=== PATIENT | female | born 1930 | race Caucasian/White ===

== ENCOUNTER 2018-01-04 10:14 | Outpatient (CLI) | payer MEDICARE ==
[2018-01-04] MEDS ORDERED: Sodium Chloride 0.9% 15 ML NEB ONE (14:25)
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
== END 2018-01-04 10:15 | disposition home or self-care (01) ==
LOC: WCC 10:14
PROVIDERS: ATTEND Family Medicine
DX: L98.499 Non-pressure chronic ulcer of skin of other sites with unspecified severity (principal); E03.9 Hypothyroidism, unspecified; I25.10 Atherosclerotic heart disease of native coronary artery without angina pectoris; I11.0 Hypertensive heart disease with heart failure; I50.9 Heart failure, unspecified; N20.0 Calculus of kidney; J45.909 Unspecified asthma, uncomplicated; N18.9 Chronic kidney disease, unspecified; I48.91 Unspecified atrial fibrillation; M10.9 Gout, unspecified; K21.9 Gastro-esophageal reflux disease without esophagitis; N90.1 Moderate vulvar dysplasia; Z90.89 Acquired absence of other organs; Z90.710 Acquired absence of both cervix and uterus; Z90.722 Acquired absence of ovaries, bilateral
CPT/HCPCS: 97139; 97602; G0463; 99203; A4218

== ENCOUNTER 2018-01-11 10:09 | Outpatient (CLI) | payer MEDICARE ==
[~2018-01-11 10:09] MED LIST: Sodium Chloride 0.9% 15 ML NEB ONE
--- NOTE | 2018-01-11 11:59 | PRG ---
DATE OF SERVICE: 01/11/2018 HISTORY: Ms. Kesha Kurtz is a very pleasant 87-year-old, who presents to the [facility] Center for evalu ation of 2 ulcerations of the left anterior chest over the inframammary region. The patient previous ly stated that the ulcerations had been present for approximately 2 years. She stated that recently the ulcerations became associated with drainage, and at this time, arrangements were made for evaluat ion of the wounds here in the Wound Center. The patient was referred to the Wound Center by Dr. Petr Salas. The patient stated she thought that she may have treated the wounds with Santyl in the past . She stated that more recently she has been dressing the ulcerations with Neosporin followed by gau ze and tape. After being seen in the Wound Center, dressing changes of Medihoney were initiated. Th e patient has been receiving dressing changes of Medihoney and bordered gauze every other day with th e assistance of Home Health. PHYSICAL EXAMINATION: VITAL SIGNS: Temperature 97.4, pulse 83, respirations 17, blood pressure 151/71. CHEST: Two ulcerations of the left anterior chest in the inframammary region are still present. The dimensions of the wounds are approximately 1.1 x 0.4 cm and 0.7 x 0.3 cm. The dimensions of these w ounds at the time of the patient's initial presentation to the Wound Center were 1.2 x 0.6 cm and 0.8 x 0.6 cm respectively. Eschar is still present within the margins of both ulcerations and completel y covers the wound bed of each ulceration. No serous or purulent drainage is associated with either ulceration on exam today. No cellulitis of the left anterior chest is appreciated. No maceration of the skin of the periwound of either wound is noted. Both ulcerations are in an area of scar tissue. ASSESSMENT AND PLAN: 1. Two ulcerations of left inframammary region as described above, both ulcerations have been presen t for approximately 2 years and developed in an area of scar tissue. Dressing changes of Medihoney a nd bordered gauze will be continued every other day after cleansing and irrigation with the assistanc e of Home Health. I will see Ms. Kurtz again in two weeks. 2. Pulmonary hypertension. 3. Hypothyroidism. 4. Coronary artery disease. 5. Nephrolithiasis. 6. Congestive heart failure. 7. Asthma. 8. Chronic renal insufficiency. 9. Atrial fibrillation. 10. Gout. 11. Gastroesophageal reflux disease. 12. Hypertension. 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
== END 2018-01-11 10:10 | disposition home or self-care (01) ==
LOC: WCC 10:09
PROVIDERS: ATTEND Family Medicine
DX: L98.499 Non-pressure chronic ulcer of skin of other sites with unspecified severity (principal); I27.20 Pulmonary hypertension, unspecified; E03.9 Hypothyroidism, unspecified; I25.10 Atherosclerotic heart disease of native coronary artery without angina pectoris; N20.0 Calculus of kidney; I50.9 Heart failure, unspecified; J45.909 Unspecified asthma, uncomplicated; I48.91 Unspecified atrial fibrillation; M10.9 Gout, unspecified; K21.9 Gastro-esophageal reflux disease without esophagitis; I13.0 Hypertensive heart and chronic kidney disease with heart failure and stage 1 through stage 4 chronic kidney disease, or unspecified chronic kidney disease; N18.9 Chronic kidney disease, unspecified; N90.1 Moderate vulvar dysplasia
CPT/HCPCS: 97602; A4218

== ENCOUNTER 2018-01-25 09:42 | Outpatient (CLI) | payer MEDICARE ==
--- NOTE | 2018-01-25 10:45 | PRG ---
DATE OF SERVICE: 01/25/2018 SUBJECTIVE: Ms. Kesha Kurtz is a very pleasant 87-year-old who presents to the [facility] Center for evaluation of 2 ulcerations of the left anterior chest over the inframammary region. The patient previously stated that the ulcerations had been present for approximately 2 years. She stated that recently the ulcerations became associated with drainage and at this time, arrangements were made for evaluation of the wound here in the Wound Center. The patient was referred to the Wound Center by Dr. Salas. The patient stated she thought that she may have treated the wounds with Santyl in the past. She stated that more recently she has been dressing the ulcerations with Neosporin, followed by gauze and tape. After being seen in the Wound Center, dressing changes of Medihoney were initiated. The patient has been receiving dressing changes of Medihoney and 4 x 4s secured with tape every other day with the assistance of Home Health. OBJECTIVE: VITAL SIGNS: Temperature 97.5, pulse 86, respirations 19, blood pressure 176/ 79. CHEST: Two ulcerations of the left anterior chest in the inframammary region are still present. The dimensions of these wounds are approximately 1.0 x 0.6 cm and 0.6 x 0.3 cm. The dimensions of these wounds at the time of the patient' s last visit were approximately 1.1 x 0.4 cm and 0.7 x 0.3 cm. Eschar is still present within the margins of both ulcerations and completely covers the wound bed of each ulceration. No serous or purulent drainage is associated with either ulceration on exam today. No cellulitis of the left anterior chest is appreciated. No maceration of the skin of the periwound of either wound is noted. Both ulcerations are in an area of scar tissue. ASSESSMENT AND PLAN: 1. Two ulcerations of left inframammary region as described above, both ulcerations had been present for approximately 2 years and developed an area of scar tissue. Dressing changes of Medihoney followed by gauze and tape will be continued every other day after cleansing and irrigation with the assistance of Home Health. I will see Ms. Kurtz again in two weeks. At this time, the eschar within the margins of each wound will be excised if possible. The patient declines excision of eschar within the margins of each wound today. 2. Pulmonary hypertension. 3. Hypothyroidism. 4. Coronary artery disease. 5. Nephrolithiasis. 6. Congestive heart failure. 7. Asthma. 8. Chronic renal insufficiency. 9. Atrial fibrillation. 10. Gout. 11. Gastroesophageal reflux disease. 12. Hypertension. 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
[2018-01-25] MEDS ORDERED: Sodium Chloride 0.9% 15 ML NEB ONE (19:51)
[2018-01-25] MEDS ORDERED: Lidocaine 2% Jelly 5 ML TUBE ONE (19:51)
== END 2018-01-25 09:43 | disposition home or self-care (01) ==
LOC: WCC 09:42
PROVIDERS: ATTEND Family Medicine
DX: L98.499 Non-pressure chronic ulcer of skin of other sites with unspecified severity (principal); I13.0 Hypertensive heart and chronic kidney disease with heart failure and stage 1 through stage 4 chronic kidney disease, or unspecified chronic kidney disease; I50.9 Heart failure, unspecified; N18.9 Chronic kidney disease, unspecified; I27.20 Pulmonary hypertension, unspecified; E03.9 Hypothyroidism, unspecified; I25.10 Atherosclerotic heart disease of native coronary artery without angina pectoris; N20.0 Calculus of kidney; I48.91 Unspecified atrial fibrillation; M10.9 Gout, unspecified; K21.9 Gastro-esophageal reflux disease without esophagitis; N90.3 Dysplasia of vulva, unspecified; J45.909 Unspecified asthma, uncomplicated
CPT/HCPCS: A4218

== ENCOUNTER 2018-02-08 09:37 | Outpatient (CLI) | payer MEDICARE ==
--- NOTE | 2018-02-08 11:54 | PRG ---
DATE OF SERVICE: 02/08/2018 HISTORY: Ms. Kesha Kurtz is a very pleasant 87-year-old who presents to the [facility] Center for evalua tion of 2 ulcerations of the left anterior chest over the inframammary region. The patient previousl y stated that the ulcerations had been present for approximately 2 years. She stated that recently t he ulcerations became associated with drainage and at this time, arrangements were made for evaluatio n of the wounds here in the Wound Center. The patient was referred to the Wound Center by Dr. Salas. The patient stated that she thought that she may have treated the wounds with Santyl in the past. S he stated that more recently she had been dressing the ulcerations with Neosporin followed by gauze a nd tape. After being seen in the Wound Center, dressing changes of Medihoney were initiated. The pa yahaira has been receiving dressing changes of Medihoney and 4 x 4 secured with tape every other day wi th the assistance of Home Health. PHYSICAL EXAMINATION: VITAL SIGNS: Temperature 97.7, pulse 85, respirations 18, blood pressure 151/71. CHEST: Two ulcerations of the left anterior chest in the inframammary region are still present. The dimensions of these wounds are approximately 1.0 x 0.5 cm and 1.0 x 0.3 cm. What appears to be hete rotopic calcifications are still present within the margins of both ulcerations and completely covers the wound bed of each ulceration. No serous or purulent drainage is associated with either ulcerati on on exam today. No cellulitis of the left anterior chest is appreciated. No maceration of the ski n of the periwound of either wound is noted. Both ulcerations are in an area of scar tissue. The he terotopic calcifications were excised from within the margins of each ulceration and sent to patholog y for histologic examination specifically to rule out fungus or malignancy and to look for findings c onsistent with heterotopic calcifications. ASSESSMENT AND PLAN: 1. Ulcerations of left inframammary region as described above, both ulcerations had been present for approximately 2 years and developed in an area of scar tissue. Dressing changes of Medihoney follow ed by gauze and tape will be continued every other day after cleansing and irrigation with the assist ance of Home Health. I will see Ms. Kurtz again in 2 weeks. At this time, the results of the hist ologic examination will be given to the patient and any remaining heterotopic calcifications will be excised with the use of injectable lidocaine. The patient understands and is in agreement with the [facility] treatment plan. 2. Pulmonary hypertension. 3. Hypothyroidism. 4. Coronary artery disease. 5. Nephrolithiasis. 6. Congestive heart failure. 7. Asthma. 8. Chronic renal insufficiency. 9. Atrial fibrillation. 10. Gout. 11. Gastroesophageal reflux disease. 12. Hypertension. 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
[2018-02-08] MEDS ORDERED: Sodium Chloride 0.9% 15 ML NEB ONE (19:26)
[2018-02-08] MEDS ORDERED: Lidocaine 2% Jelly 5 ML TUBE ONE (19:26)
== END 2018-02-08 09:38 | disposition home or self-care (01) ==
LOC: WCC 09:37
PROVIDERS: ATTEND Family Medicine
DX: L98.499 Non-pressure chronic ulcer of skin of other sites with unspecified severity (principal); I13.0 Hypertensive heart and chronic kidney disease with heart failure and stage 1 through stage 4 chronic kidney disease, or unspecified chronic kidney disease; I50.9 Heart failure, unspecified; N18.9 Chronic kidney disease, unspecified; L90.5 Scar conditions and fibrosis of skin; I27.20 Pulmonary hypertension, unspecified; E03.9 Hypothyroidism, unspecified; I25.10 Atherosclerotic heart disease of native coronary artery without angina pectoris; N20.0 Calculus of kidney; J45.909 Unspecified asthma, uncomplicated; I48.91 Unspecified atrial fibrillation; M10.9 Gout, unspecified; K21.9 Gastro-esophageal reflux disease without esophagitis; N90.1 Moderate vulvar dysplasia
CPT/HCPCS: 88304; 88312; 97602; A4218

== ENCOUNTER 2018-02-22 10:05 | Outpatient (CLI) | payer MEDICARE ==
--- NOTE | 2018-02-22 12:13 | PRG ---
DATE OF SERVICE: 02/22/2018 SUBJECTIVE: Ms. Kesha Kurtz is a very pleasant 87-year-old who presents to the Wound Center for e valuation of 2 ulcerations of the left anterior chest over the inframammary region. The patient prev iously stated that the ulcerations had been present for approximately 2 years. She stated that recen tly the ulcerations became associated with drainage and at this time, arrangements were made for eval uation of the wounds here in the Wound Center. The patient was referred to the Wound Center by Dr. Renée weiss. The patient stated that she thought that she may have treated the wounds with Santyl in the pas t. She stated that more recently she had been dressing the ulcerations with Neosporin, followed by g auze and tape. After being seen in the Wound Center, dressing changes of Medihoney were initiated. The patient has been receiving dressing changes of Medihoney and 4 x 4s secured with tape every other day with the assistance of Home Health. OBJECTIVE: VITAL SIGNS: Temperature 97.4, pulse 80, respirations 20, blood pressure 180/75. CHEST: Two ulcerations of the left anterior chest in the inframammary region are still present. The dimensions of these wounds are approximately 0.2 x 0.5 cm and 0.4 x 1.0 cm what appears to be hetero topic calcifications are still present within the margins of both ulcerations. No serous or purulent drainage is associated with either ulceration on exam today. No cellulitis of the left anterior ty st is appreciated. No maceration of the skin of the periwound of either wound is noted. Both ulcera tions are in an area of scar tissue. ASSESSMENT AND PLAN: 1. Ulcerations of left inframammary region as described above, both ulcerations had been present for approximately 2 years and developed an area of scar tissue. Dressing changes of Medihoney, followed by gauze and tape will be continued every other day after cleansing and irrigation with the assistan ce of Home Health. I will see Ms. Kurtz again in two weeks. The patient understands and is in agr eement with the preceding treatment plan. Histologic examination of the heterotopic calcifications e xcised from within the margins of each ulceration at the time of the patient's last visit showed no f ungal organisms and fragments of calcium and degenerated soft tissue with neutrophils. 2. Pulmonary hypertension. 3. Hypothyroidism. 4. Coronary artery disease. 5. Nephrolithiasis. 6. Congestive heart failure. 7. Asthma. 8. Chronic renal insufficiency. 9. Atrial fibrillation. 10. Gout. 11. Gastroesophageal reflux disease. 12. Hypertension. 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
[2018-02-22] MEDS ORDERED: Sodium Chloride 0.9% 15 ML NEB ONE (14:56)
[2018-02-22] MEDS ORDERED: Lidocaine 2% Jelly 5 ML TUBE ONE (14:56)
== END 2018-02-22 10:06 | disposition home or self-care (01) ==
LOC: WCC 10:05
PROVIDERS: ATTEND Family Medicine
DX: L98.499 Non-pressure chronic ulcer of skin of other sites with unspecified severity (principal); I13.0 Hypertensive heart and chronic kidney disease with heart failure and stage 1 through stage 4 chronic kidney disease, or unspecified chronic kidney disease; I50.9 Heart failure, unspecified; N18.9 Chronic kidney disease, unspecified; I27.20 Pulmonary hypertension, unspecified; E03.9 Hypothyroidism, unspecified; I25.10 Atherosclerotic heart disease of native coronary artery without angina pectoris; N20.0 Calculus of kidney; J45.909 Unspecified asthma, uncomplicated; I48.91 Unspecified atrial fibrillation; M10.9 Gout, unspecified; K21.9 Gastro-esophageal reflux disease without esophagitis; N90.1 Moderate vulvar dysplasia
CPT/HCPCS: A4218

== ENCOUNTER 2018-03-15 08:57 | Outpatient (CLI) | payer MEDICARE ==
--- NOTE | 2018-03-15 09:45 | PRG ---
DATE OF SERVICE: 03/15/2018 HISTORY: Ms. Kesha Kurtz is a very pleasant 87-year-old who presents to the [facility] Center for los luation of 2 ulcerations of the left anterior chest over the inframammary region. The patient previo usly stated that the ulcerations had been present for approximately 2 years. She stated that recentl y the ulcerations became associated with drainage and at this time, arrangements were made for evalua tion of the wounds here in the [facility]ound Center. The patient was referred to the Wound Center by Dr. Ric avila. The patient stated that she thought that she may have treated the wounds with Santyl in the past. The patient stated that more recently she had been dressing the ulcerations with Neosporin followed by gauze and tape. After being seen in the Wound Center, dressing changes of Medihoney were initiat ed. The patient has been receiving dressing changes of Medihoney and 4 x 4 secured with tape every o ther day with the assistance of Home Health. PHYSICAL EXAMINATION: VITAL SIGNS: Temperature 97.7, pulse 84, respirations 19, blood pressure 172/74. CHEST: Two ulcerations of the left anterior chest in the inframammary region are still present. The dimensions of these wounds are approximately 0.3 x 1.0 cm and 0.2 x 0.3 cm. What appears to be hete rotopic calcifications are still present within the margins of both ulcerations. No serous or purule nt drainage is associated with either ulceration on exam today. No cellulitis of the left anterior c hest is appreciated. No maceration of the skin of the periwound of either wound is noted. Both ulce rations are in an area of scar tissue. ASSESSMENT AND PLAN: 1. Ulcerations of left inframammary region as described above, both ulcerations had been present for approximately 2 years and developed in an area of scar tissue. Dressing changes of Medihoney follow ed by gauze and tape will be continued every other day after cleansing and irrigation with the assist ance of Home Health. I will see Ms. Kurtz again in 2 weeks. Histologic examination of the heterot opic calcifications excised from within the margins of each ulceration at the time of the patient's v isit on 02/09/2008 showed no fungal organisms and fragments of calcium and degenerated soft tissue wi th neutrophils. 2. Pulmonary hypertension. 3. Hypothyroidism. 4. Coronary artery disease. 5. Nephrolithiasis. 6. Congestive heart failure. 7. Asthma. 8. Chronic renal insufficiency. 9. Atrial fibrillation. 10. Gout. 11. Gastroesophageal reflux disease. 12. Hypertension. 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
== END 2018-03-15 08:58 | disposition home or self-care (01) ==
LOC: WCC 08:57
PROVIDERS: ATTEND Family Medicine
DX: L98.499 Non-pressure chronic ulcer of skin of other sites with unspecified severity (principal); E03.9 Hypothyroidism, unspecified; I25.10 Atherosclerotic heart disease of native coronary artery without angina pectoris; N20.0 Calculus of kidney; I13.10 Hypertensive heart and chronic kidney disease without heart failure, with stage 1 through stage 4 chronic kidney disease, or unspecified chronic kidney disease; I50.9 Heart failure, unspecified; N18.9 Chronic kidney disease, unspecified; J45.909 Unspecified asthma, uncomplicated; I48.91 Unspecified atrial fibrillation; M10.9 Gout, unspecified; K21.9 Gastro-esophageal reflux disease without esophagitis; N90.1 Moderate vulvar dysplasia
CPT/HCPCS: 97602

== ENCOUNTER 2018-03-31 09:35 | Outpatient (CLI) | payer MEDICARE ==
--- NOTE | 2018-03-31 10:55 | PRG ---
DATE OF SERVICE: 03/31/2018 HISTORY: Ms. Kesha Kurtz is a very pleasant 87-year-old who presents to the [facility] Center for los luation of 2 ulcerations of the left anterior chest over the inframammary region. The patient previo usly stated that the ulcerations had been present for approximately 2 years. She stated that recentl y the ulcerations became associated with drainage and at this time, arrangements were made for evalua tion of the wounds here in the Wound Center. The patient was referred to the Wound Center by Dr. Ric avila. The patient stated that she thought that she may have treated the wounds with Santyl in the past. The patient stated that more recently she had been dressing the ulcerations with Neosporin followed by gauze and tape. After being seen in the Wound Center, dressing changes of Medihoney were initiat ed. The patient has been receiving dressing changes of Medihoney and gauze every other day with the assistance of Home Health. PHYSICAL EXAMINATION: VITAL SIGNS: Temperature 97.5, pulse 84, respirations 18, blood pressure 178/79. CHEST: Only 1 ulceration of the left anterior chest in the inframammary region remains. The dimensi ons of this wound are approximately 0.4 x 0.3 cm. What appears to be heterotopic calcification is st ill present within the margins of the wound. Granulation tissue is present within the wound margins. No serous or purulent drainage is associated with the ulceration. No cellulitis of the left anteri or chest is appreciated. No maceration of the skin of the periwound is noted. The ulceration is in an area of scar tissue. ASSESSMENT AND PLAN: 1. Ulcerations of left inframammary region as described above, both ulcerations had been present for approximately 2 years and developed in an area of scar tissue. Dressing changes of Medihoney follow ed by gauze for the remaining wound will be continued every other day after cleansing and irrigation with the assistance of Home Health. I will see Ms. Kurtz again in 2 weeks'. Histologic examinatio n of the heterotopic calcifications excised from within the margins of each ulceration at the time of the patient's visit on 02/08/2018 showed no fungal organisms and fragments of calcium and degenerate d soft tissue with neutrophils. 2. Pulmonary hypertension. 3. Hypothyroidism. 4. Coronary artery disease. 5. Nephrolithiasis. 6. Congestive heart failure. 7. Asthma. 8. Chronic renal insufficiency. 9. Atrial fibrillation. 10. Gout. 11. Gastroesophageal reflux disease. 12. Hypertension. 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
== END 2018-03-31 09:36 | disposition home or self-care (01) ==
LOC: WCC 09:35
PROVIDERS: ATTEND Family Medicine
DX: L98.499 Non-pressure chronic ulcer of skin of other sites with unspecified severity (principal); E03.9 Hypothyroidism, unspecified; I25.10 Atherosclerotic heart disease of native coronary artery without angina pectoris; I13.0 Hypertensive heart and chronic kidney disease with heart failure and stage 1 through stage 4 chronic kidney disease, or unspecified chronic kidney disease; I50.9 Heart failure, unspecified; N18.9 Chronic kidney disease, unspecified; N20.0 Calculus of kidney; J45.909 Unspecified asthma, uncomplicated; I48.91 Unspecified atrial fibrillation; I27.20 Pulmonary hypertension, unspecified; M10.9 Gout, unspecified; K21.9 Gastro-esophageal reflux disease without esophagitis; D05.01 Lobular carcinoma in situ of right breast
CPT/HCPCS: 97602

== ENCOUNTER 2018-04-19 09:03 | Outpatient (CLI) | payer MEDICARE ==
[2018-04-19] MEDS ORDERED: Lidocaine 2% Jelly 5 ML TUBE ONE (10:00)
--- NOTE | 2018-04-19 10:55 | PRG ---
DATE OF SERVICE: 04/19/2018 HISTORY: Ms. Kesha Kurtz is a very pleasant 87-year-old who presents to the Wound Center for evaluation of 2 ulcerations of the left anterior chest over the inframammary region. The patient previously stated that the ulcerations had been present for approximately 2 years. She stated that recently the ulcerations became associated with drainage, and at this time, arrangements were made for evaluation of the wounds here in the Wound Center. The patient was referred to the Wound Center by Dr. Salas. The patient stated that she thought that she may have treated the wounds with Santyl in the past. The patient stated that more recently she had been dressing the ulcerations with Neosporin followed by gauze and tape. After being seen in the Wound Center , dressing changes of Medihoney were initiated. The patient has been receiving dressing changes of Medihoney and gauze every other day with the assistance of Home Health. PHYSICAL EXAMINATION: VITAL SIGNS: Temperature 97.6, pulse 80, respirations 17, blood pressure 174/ 74. CHEST: The remaining ulceration noted at the time of the patients last visit has divided into two small ulcerations of the left anterior chest in the inframammary region. The dimensions of these wounds are approximately 0.1 x 0.1 cm and 0.2 x 0.9 cm. What appears to be heterotopic calcification is still present within the margins of 1 wound. Granulation tissue is present within the margins of each wound. No serous or purulent drainage is associated with either ulceration. No cellulitis of the left anterior chest is appreciated. No maceration of the skin of the periwound of either wound is noted. The ulcerations are present in an area of scar tissue. ASSESSMENT AND PLAN: 1. Ulcerations of left inframammary region. As stated above, two ulcerations have been present for approximately 2 years and developed in an area of scar tissue. Dressing changes of Medihoney and gauze for the remaining ulcerations will be continued every other day after cleansing and irrigation with the assistance of Home Health. I will see Ms. Kurtz again in 2 weeks. Histologic examination of the heterotopic calcifications excised from the margins of each ulceration at the time of the patient's visit on 02/08/2018 showed no fungal organisms and fragments of calcium and degenerated soft tissue with neutrophils. 2. Pulmonary hypertension. 3. Hypothyroidism. 4. Coronary artery disease. 5. Nephrolithiasis. 6. Congestive heart failure. 7. Asthma. 8. Chronic renal insufficiency. 9. Atrial fibrillation. 10. Gout. 11. Gastroesophageal reflux disease. 12. Hypertension. 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
== END 2018-04-19 09:04 | disposition home or self-care (01) ==
LOC: WCC 09:03
PROVIDERS: ATTEND Family Medicine
DX: L98.499 Non-pressure chronic ulcer of skin of other sites with unspecified severity (principal); I13.0 Hypertensive heart and chronic kidney disease with heart failure and stage 1 through stage 4 chronic kidney disease, or unspecified chronic kidney disease; I50.9 Heart failure, unspecified; N18.9 Chronic kidney disease, unspecified; I27.20 Pulmonary hypertension, unspecified; E03.9 Hypothyroidism, unspecified; I25.10 Atherosclerotic heart disease of native coronary artery without angina pectoris; N20.0 Calculus of kidney; J45.909 Unspecified asthma, uncomplicated; I48.91 Unspecified atrial fibrillation; M10.9 Gout, unspecified; K21.9 Gastro-esophageal reflux disease without esophagitis; N90.1 Moderate vulvar dysplasia
CPT/HCPCS: 97602

== ENCOUNTER 2018-05-06 10:22 | Outpatient (CLI) | payer MEDICARE ==
--- NOTE | 2018-05-03 10:49 | PRG ---
DATE OF SERVICE: 05/03/2018 HISTORY: Ms. Kesha Kurtz is a very pleasant 87-year-old, who presents to the [facility] for ev aluation of two ulcerations of the left anterior chest over the inframammary region. The patient pre viously stated that the ulcerations had been present for approximately 2 years. She stated that rece ntly the ulcerations became associated with drainage and at this time, arrangements were made for los luation of the wounds here in the Wound Center. The patient was referred to the Wound Center by Dr. Salas. The patient stated that she thought that she may have treated the wounds with Santyl in the [facility]. The patient stated that more recently she had been dressing the ulceration with Neosporin follow ed by gauze and tape. After being seen in the Wound Center, dressing changes of Medihoney were initi ated. The patient has been receiving dressing changes of Medihoney and gauze every other day with th e assistance of Home Health. PHYSICAL EXAMINATION: VITAL SIGNS: Temperature 97.7, pulse 80, respirations 18, and blood pressure 172/79. CHEST: Two small ulcerations of the left anterior chest in the inframammary region remain. The dime nsions of these wounds are approximately 0.1 x 0.1 cm and 0.4 x 0.3 cm. No heterotopic calcification s are visible within the margins of either wound. Granulation tissue is present within the margins o f each wound. No serous or purulent drainage is associated with either ulceration. No cellulitis of the left anterior chest is appreciated. No maceration of the skin of the periwound of either wound is noted. The ulcerations are present in an area of scar tissue. ASSESSMENT AND PLAN: 1. Ulcerations of left inframammary region. As stated above two ulcerations had been present for ap proximately 2 years and developed an area of scar tissue. Dressing changes of Medihoney and gauze fo r the remaining ulcerations will be continued every other day after cleansing and irrigation with the assistance of Home Health. The wounds have almost healed completely and Ms. Kurtz will be dischar ged from clinic with followup on a p.r.n. basis. Dressing changes will be discontinued once both ulc erations have healed completely. The histologic examination of the heterotopic calcifications excise d from the margins of each ulceration at the time of the patient's visit on 02/08/2018 showed no sri al organisms and fragments of calcium and degenerated soft tissue with neutrophils. 2. Pulmonary hypertension. 3. Hypothyroidism. 4. Coronary artery disease. 5. Nephrolithiasis. 6. Congestive heart failure. 7. Asthma. 8. Chronic renal insufficiency. 9. Atrial fibrillation. 10. Gout. 11. Gastroesophageal reflux disease. 12. Hypertension. 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
[2018-05-09] MEDS ORDERED: Sodium Chloride 0.9% 15 ML NEB ONE (15:17)
[2018-05-09] MEDS ORDERED: Lidocaine 2% Jelly 5 ML TUBE ONE (15:17)
== END 2018-05-06 10:23 | disposition home or self-care (01) ==
LOC: WCC 10:22
PROVIDERS: ATTEND Family Medicine
DX: L98.499 Non-pressure chronic ulcer of skin of other sites with unspecified severity (principal); I13.0 Hypertensive heart and chronic kidney disease with heart failure and stage 1 through stage 4 chronic kidney disease, or unspecified chronic kidney disease; I50.9 Heart failure, unspecified; N18.9 Chronic kidney disease, unspecified; I27.20 Pulmonary hypertension, unspecified; E03.9 Hypothyroidism, unspecified; I25.10 Atherosclerotic heart disease of native coronary artery without angina pectoris; N20.0 Calculus of kidney; J45.909 Unspecified asthma, uncomplicated; I48.91 Unspecified atrial fibrillation; M10.9 Gout, unspecified; K21.9 Gastro-esophageal reflux disease without esophagitis; N90.1 Moderate vulvar dysplasia
CPT/HCPCS: 97602; A4218

== ENCOUNTER 2018-09-20 09:50 | Day surgery (SDC) | payer MEDICARE ==
[2018-09-17 15:52] VITALS: BMI 25.9
--- NOTE | 2018-09-20 19:13 | OP ---
PREOPERATIVE DIAGNOSIS: Persistent nausea and vomiting. PROCEDURE: After informed consent was obtained, the patient was placed in the left lateral decubitus position. Anesthesia was administered per the Anesthesia Department. Forward-viewing endoscope was inserted into the esophagus under direct visualization with ease and passed to the second portion of the duodenum with ease. Second portion of the duodenum and duodenal bulb were normal. The pylorus, antrum, body, fundus, and cardia were normal. Retroflexion in the stomach was normal except for a m edium sized hiatal hernia. The esophagus was normal throughout. ASSESSMENT: 1. Medium hiatal hernia. 2. Otherwise, normal esophagogastroduodenoscopy. RECOMMENDATIONS: 1. Gastric emptying scan. 2. Follow up in 1-2 weeks.
== END 2018-09-20 15:24 | disposition home or self-care (01) ==
LOC: SDC 09:50
PROVIDERS: ATTEND Internal Medicine Gastroenterology
PROC: 0DJ08ZZ Inspection of Upper Intestinal Tract, Via Natural or Artificial Opening Endoscopic (ICD-10-PCS; principal; 2018-09-20)
DX: K44.9 Diaphragmatic hernia without obstruction or gangrene (principal); I48.91 Unspecified atrial fibrillation; I25.10 Atherosclerotic heart disease of native coronary artery without angina pectoris; I50.9 Heart failure, unspecified; M10.9 Gout, unspecified; I27.20 Pulmonary hypertension, unspecified; Z79.82 Long term (current) use of aspirin; Z79.899 Other long term (current) drug therapy; Z88.0 Allergy status to penicillin; Z88.8 Allergy status to other drugs, medicaments and biological substances; Z88.7 Allergy status to serum and vaccine; Z91.048 Other nonmedicinal substance allergy status; Z95.810 Presence of automatic (implantable) cardiac defibrillator; Z99.81 Dependence on supplemental oxygen

== ENCOUNTER 2018-10-12 07:10 | Outpatient (CLI) | payer MEDICARE ==
--- NOTE | 2018-10-12 16:07 | NM ---
NUCLEAR MEDICINE GASTRIC EMPTYING EXAM: HISTORY: Nausea with vomiting, unspecified. RADIOPHARMACEUTICAL: 2.1 mCi sulfur colloid oral ingestion. FINDINGS: Using geometric mean with anterior and posterior scintigraphic imaging performed, the approximate T-1 /2 is 63 minutes. 100% gastric emptying occurs at 253 minutes. IMPRESSION: Gastric emptying half-time of 63 minutes. POS: [facility]
== END 2018-10-12 07:11 | disposition home or self-care (01) ==
LOC: NM 07:10
PROVIDERS: ATTEND Internal Medicine Gastroenterology
DX: R11.2 Nausea with vomiting, unspecified (principal)
CPT/HCPCS: 78264; A9541

== ENCOUNTER 2018-10-25 02:48 | Inpatient (IN) | payer MEDICARE ==
[2018-10-25] MEDS ORDERED: Ondansetron PF 4 MG/2 ML Vial ONE (03:13)
[2018-10-25 04:19] LABS: Hemoglobin 16.8 g/dL (12.0-16.0); Mean Corpuscular HGB CONC 33.1 g/dL (32.0-36.0); Mean Corpuscular Hemoglobin 32.9 pg (27.0-31.0); Mean Corpuscular Volume 99.2 fL (78.0-98.0); Mean Platelet Volume 11.1 fL (7.4-10.4); Platelet Count 161 thou/uL (130-400); RBC Distribution Width 13.6 % (11.5-14.5); Red Blood Cell (RBC) Count 5.11 mill/uL (4.20-5.40); White Blood Cell (WBC) Count 16.5 thou/uL (4.8-10.8)
[2018-10-25 04:32] LABS: ALT (SGPT) 13 U/L (8-55); AST (SGOT) 20 U/L (5-34); Albumin 3.6 g/dL (3.4-4.8); Alkaline Phosphatase 117 U/L (40-150); Anion Gap 21 mmol/L (10-20); BUN (Urea Nitrogen) 37 mg/dL (9.8-20.1); Bilirubin, Total 2.4 mg/dL (0.2-1.2); CK (CPK) 20 U/L (29-168); Calc. Creatinine Clearance 0 mL/min (70-130); Calcium 10.1 mg/dL (7.8-10.44); Carbon Dioxide 27 mmol/L (23-31); Chloride 91 mmol/L (98-107); Estimated GFR-MDRD 48; Globulin 3.4 g/dL (2.4-3.5); Glucose 104 mg/dL (83-110); Sodium 136 mmol/L (136-145)
[2018-10-25 04:36] LABS: Potassium 2.8 mmol/L (3.5-5.1)
[2018-10-25 04:57] LABS: CKMB 1.7 ng/mL (0-6.6)
[2018-10-25 05:05] LABS: Band 3 % (5-11); Lymphocytes 11 % (21-51); MDiff Complete? YES; Monocytes 5 % (0-10); Neutrophil 75 % (42-75); PLT Morphology Comment Appears Adequate; Polychromasia SLIGHT = 2-3 cells (100X) (0-2/hpf); Reactive Lymphocytes 6 % (0-10)
[2018-10-25 05:05] LABS: Bilirubin Small (Negative); Blood, Urine Negative (Negative); Clarity CLEAR (Clear); Glucose, Urine (Dipstick) Negative (Negative); Leukocyte Negative (Negative); Nitrite Negative (Negative); Protein, Urine (Dipstick) Negative (Neg-Trace); Specific Gravity, Urine 1.015 (1.002-1.036); pH, Urine 5.5 (5.0-9.0)
--- NOTE | 2018-10-25 07:48 | RAD ---
CHEST 1 VIEW: History Fall. COMPARISON: Radiograph 07/08/2018. FINDINGS: There are multifocal nodular densities projecting over the lungs, the largest in the right mid lung. Mild S-shaped scoliosis. Heart size is markedly enlarged. IMPRESSION: Multiple nodular opacities throughout both lungs may reflect multifocal pneumonia. Followup radiogra ph of the chest is recommended after treatment as the right mid lung nodular density is somewhat mass -like. CODE T POS: [facility]
--- NOTE | 2018-10-25 07:55 | RAD ---
LUMBAR SPINE 2 VIEWS: HISTORY: Pain, fall. COMPARISON: FINDINGS: Severe atherosclerosis of the aorta. There is a right renal arterial stent. Mild levoscoliosis. Anterolisthesis of L4 over L5 due to degenerative facet arthropathy. Narrowing of the interspinous s paces. No definite acute fracture is appreciated. IMPRESSION: No definite acute fracture of the lumbar spine. Advanced degenerative changes. POS: [facility]
--- NOTE | 2018-10-25 08:57 | CT ---
PRELIMINARY REPORT/[facility]/EMERGENTY AFTER-HOURS PROCEDURE CT Cervical Spine Without Contrast EXAM DATE/TIME: 10/25/2018 3:12 AM CLINICAL HISTORY: 88 years old, female; Injury or trauma; Fall; Initial encounter; Abrasion; Patient HX: Fall at [employer] home, unwitnessed. PT was found on floor. A&ox4 for ems. TECHNIQUE: Axial computed tomography images of the cervical spine without intravenous contrast. Coronal and sagi ttal reformatted images were created and reviewed. COMPARISON: No relevant prior studies available. FINDINGS: Vertebrae: On axial CT images, no definite acute fracture is visible. Sagittal and coronal reconstructions show no fracture or post traumatic subluxation. Moderate to ignacio re degenerative disc changes and facet joint arthritis at several levels. Mild, 2-3 mm of anterior case bluxation of C3 relative to C4. No visible fracture. Prominent facet joint arthritis at this level is the likely etiology. Discs/Spinal canal/Neural foramina: No definite/significant disc herniation by CT, MRI could be more sensitive if clinically indicated. Lungs: Lung apices appear essentially unremarkable. IMPRESSION: 1. No definite acute fracture or post traumatic subluxation by CT. 2. Other findings discussed above. Thank you for allowing us to participate in the care of your patient. Dictated and Authenticated by: Shawn De La Fuente MD 10/25/2018 4:00 AM Central Time ([place] & [place]) FINAL REPORT CT CERVICAL SPINE WITHOUT CONTRAST: HISTORY: Fall. COMPARISON: None. FINDINGS: The findings and impression are concordant with the preliminary report. POS: [facility]
--- NOTE | 2018-10-25 08:59 | CT ---
PRELIMINARY REPORT/[facility]/EMERGENTY AFTER-HOURS PROCEDURE CT Abdomen and Pelvis Without Contrast EXAM DATE/TIME: 10/25/2018 6:06 AM CLINICAL HISTORY: 88 years old, female; Pain and injury or trauma and signs and symptoms; Fall; Initial encounter; Naus ea and vomiting; Abrasion; Abdominal pain; Localized; Lower; Prior surgery; Surgery type: Surgical hi story of appendectomy, surgical history of hysterectomy. ; Patient HX: 88 yo f comes in after a fall at home. Patient does not remember the fall, she does not remember if she had loc or if she hit her h ead. 88 yo f comes in after a fall at home. Patient does not remember the fall, she does not remember if she had loc or if she hit her head. TECHNIQUE: Axial computed tomography images of the abdomen and pelvis without contrast. Coronal and sagittal reformatted images were created and reviewed. COMPARISON: No relevant prior studies available. FINDINGS: Lower thorax: No acute findings. ABDOMEN: Liver: Hypoattenuation along the falciform ligament and gallbladder fossa suggestive of focal fat. Gallbladder and bile ducts: Unremarkable. Pancreas: Unremarkable. Spleen: Calcified splenic granulomas. Adrenals: 1 cm left adrenal nodule compatible with an adenoma. 2 cm indeterminate right adrenal nodul e. Kidneys and ureters: 1 cm right renal cyst. No obstructive stone hydronephrosis. Stomach and bowel: Unremarkable. No obstruction. Appendix: History of appendectomy. PELVIS: Bladder: Unremarkable. Reproductive: Hysterectomy. ABDOMEN and PELVIS: Intraperitoneal space: No free air. No significant fluid collection. Bones/joints: Spinal degenerative changes and grade I L4 anterolisthesis. No acute fracture or sublux ation. Soft tissues: Unremarkable. Vasculature: Dense atherosclerotic calcifications. Lymph nodes: No enlarged lymph nodes. IMPRESSION: 1. No acute abdominal findings. 2. Right lower lobe pneumonia. Thank you for allowing us to participate in the care of your patient. Dictated and Authenticated by: Armando Mcneill MD 10/25/2018 7:01 AM Central Time ([place] & [place]) FINAL REPORT EMERGENCY AFTER HOURS ABDOMEN AND PELVIC CT SCAN WITHOUT IV CONTRAST: Date: 10/25/18 Time: 0607 hours FINDINGS: Right lower lobe pneumonia. Small left adrenal adenoma and nonspecific right adrenal nodule. Probable small right renal cyst without hydronephrosis. Moderate anterolisthesis of L4 on L5 with some associ ated canal stenosis. Other findings as above. Report in agreement with preliminary report given on-call by Edilma. POS: [facility]
[2018-10-25] MEDS ORDERED: MEROPENEM 1 GM/50 ML 1 GM in Premix Bag 1 BAG IVPB SCH (09:00)
--- NOTE | 2018-10-25 09:00 | CT ---
PRELIMINARY REPORT/[facility]/EMERGENTY AFTER-HOURS PROCEDURE CT Head Without Contrast EXAM DATE/TIME: 10/25/2018 3:14 AM CLINICAL HISTORY: 88 years old, female; Injury or trauma; Fall; Initial encounter; Abrasion; Not specified; Patient HX: Fall at [facility], unwitnessed. PT was found on floor. A&ox4 for ems. TECHNIQUE: Axial computed tomography images of the head/brain without contrast. COMPARISON: No relevant prior studies available. FINDINGS: Brain: No acute intracranial hemorrhage or mass effect. There is relatively symmetrical decreased attenuation in the periventricular white matter, likely fro m microvascular disease. Suspect small/subtle old lacunar infarcts in the basal ganglia/internal caps ule regions bilaterally. No definite acute infarct by CT. MRI could be more sensitive/specific for detection, and also for dis tinguishing between old and subacute infarcts, as clinically directed. Ventricles: Ventricle size is normal for age. Bones/joints: No definite acute skull fracture. Sinuses: Included paranasal sinuses are essentially clear. Mastoid air cells: No significant acute finding. IMPRESSION: 1. No acute intracranial bleed or mass effect. 2. Changes of microvascular disease, and small/subtle old lacunar infarcts. Thank you for allowing us to participate in the care of your patient. Dictated and Authenticated by: Shawn De La Fuente MD 10/25/2018 3:48 AM Central Time ([place] & [place]) FINAL REPORT CT BRAIN WITHOUT CONTRAST: HISTORY: Fall. FINDINGS/IMPRESSION: Findings and impression are concordant with the preliminary report. POS: [facility]
[2018-10-25] MEDS ORDERED: Magnesium 2 GM/50 ML BAG (IN WATER) ONE (09:52)
[2018-10-25 10:04] LABS: Troponin I 0.083 ng/mL (< 0.028)
--- NOTE | 2018-10-25 10:11 | PDOC.FM ---
- Subjective Subjective: 88 yo F here with initial complaint of fall at home at around 0100 in 10/25. She states that she does not remember the event. Prior to this morning she complains of 3-4 days of n/v/d with associated non productive cough. She denies fever or chills. She endorses R sided chest pain for a similar timeframe as her other symptoms. In the ED CXR was concerning for multifocal pna. Potassium was found to be 2.8 with a normal Mg. WBC count was 16.5 with a bandemia. She was given 1g of meropenem and bolused 1L of LR. Initial trop was 0.086 - Objective Result Diagrams: 10/25/18 03:55 10/25/18 03:55 Radiology Reviewed by me: Yes Radiology: CXR shows concern for possible multi lobar PNA with infiltrate vs mass in R middle lobe. CT of abd/pelvis, cervical spine, lumbar spine, and brain negative other than known adrenal mass. Phys Exam - Physical Examination Constitutional: NAD HEENT: PERRLA, moist MMs, sclera anicteric Neck: no JVD Mild inspiratory wheeze on R. Otherwise CTA Cardiovascular: RRR, no significant murmur Gastrointestinal: soft, non-tender, no distention, positive bowel sounds Musculoskeletal: no edema Psychiatric: normal affect, A&O x 3 Skin: normal turgor Deviation from normal: Dressed wound on epigastrum. Non tender. No erythema
--- NOTE | 2018-10-25 10:29 | PDOC.FPRHP ---
- History of Present Illness Chief Complaint: Fall at home History of Present Illness: 88 yo F here with initial complaint of fall at home at around 0100 in 10/25. She states that she does not remember the event. Prior to this morning she complains of 3-4 days of n/v/d with associated non productive cough. She denies fever or chills. She endorses R sided chest pain for a similar timeframe as her other symptoms. In the ED CXR was concerning for multifocal pna. Potassium was found to be 2.8 with a normal Mg. WBC count was 16.5 with a bandemia. She was given 1g of meropenem and bolused 1L of LR. Initial trop was 0.086 - Allergies/Adverse Reactions Allergies Allergy/AdvReac Type Severity Reaction Status Date / Time adhesive Allergy Rash Verified 04/10/14 12:20 Penicillins Allergy Hives Verified 05/25/13 16:50 beta blockers Allergy Hives Uncoded 05/25/13 16:50 - Home Medications Medication Instructions Recorded Confirmed Type Albuterol Sulfate [Albuterol 2.5 mg NEB Q8H PRN 05/25/13 10/25/18 History Sulfate Neb] Allopurinol [Zyloprim] 100 mg PO DAILY 05/25/13 10/25/18 History Aspirin [Aspir 81] 81 mg PO DAILY 05/25/13 10/25/18 History Cyanocobalamin (Vitamin B-12) 500 mcg PO DAILY 05/25/13 10/25/18 History [B-12] Esomeprazole Magnesium [NexIUM] 40 mg PO DAILY PRN 05/25/13 10/25/18 History Levothyroxine Sodium [Tirosint] 50 mcg PO QAM 05/25/13 10/25/18 History Nitroglycerin [Nitrostat] 0.4 mg SL ASDIR PRN 05/25/13 10/25/18 History Pravastatin Sodium 40 mg PO HS 05/25/13 10/25/18 History Spironolactone 25 mg PO DAILY 05/25/13 10/25/18 History Albuterol Sulfate 1.25 mg IH QID PRN 07/08/18 10/25/18 History Calcitriol [Rocaltrol] 0.25 mcg PO DAILY 07/08/18 10/25/18 History Docusate [Colace] 1 cap PO BID PRN 07/08/18 10/25/18 History Furosemide [Lasix] 40 mg PO QAM 07/08/18 10/25/18 History Furosemide [Lasix] 80 mg PO QPM 07/08/18 10/25/18 History Montelukast Sodium 10 mg PO HS 07/08/18 10/25/18 History traMADol HCl/Acetaminophen 1 each PO DAILY 07/08/18 10/25/18 History [Tramadol-Acetaminophn 37.5-325] Ondansetron HCl [Zofran] 4 mg PO Q4HR #30 tablet 07/09/18 10/25/18 Rx Budesonide-Formoterol [Symbicort 1 puff INH BID 10/25/18 10/25/18 History 160-4.5] Fluticasone/Vilanterol [Breo 1 inh IH DAILY 10/25/18 10/25/18 History Ellipta] Gabapentin 100 mg PO TID 10/25/18 10/25/18 History Metoclopramide HCl [Reglan] 10 mg PO TID PRN 10/25/18 10/25/18 History Potassium Chloride [Klor-Con 10] 10 meq PO DAILY 10/25/18 10/25/18 History - History PMHx: CKD3 CAD Afib Chronic LBP Adrenal mass, right, IBS anxiety CHF Osteoporosis Hypothyroid Vit D deficiency Asthma gout RA Pulmonary HTN Recurrent UTI PSHx: Coronary arterial stent x2 in 1996 Appendectomy Partial hysterectomy AICD placement R Renal A stent FHx: Social: No tobacco, etoh, drug use - Review of Systems General: denies: fever/chills, weight/appetite/sleep changes Eyes: denies: eye pain, vision changes ENT: reports: nasal congestion. denies: rhinorrhea Respiratory: reports: cough. denies: shortness of breath Cardiovascular: reports: chest pain (R side) Gastrointestinal: reports: nausea, vomiting, diarrhea. denies: GI bleeding Genitourinary: denies: dysuria Skin: denies: rashes Musculoskeletal: denies: pain Neurological: denies: numbness, syncope Psychological: denies: anxiety, depression - Vital signs BP: 170/71 HR: 80 RR: 19 Tmax: 97.4 Pox: 99% on RA Wt: 70 kg - Physical Exam Constitutional: NAD, awake, alert and oriented HEENT: normocephalic and atraumatic, PERRLA, EOMI, conjunctiva clear Neck: trachea midline Chest: no-tender to palpation, no lesions Heart: RRR, normal S1/S2 Lungs: no respiratory distress, good air movement -Lungs: Mild wheeze R middle lobe, otherwise CTA Abdomen: soft, non-tender, bowel sounds present Musculoskeletal: normal structure, normal tone Neurological: no focal deficit, CN II-XII intact -Skin: Dressed wound on epigastrum. Non tender. No erythema Heme/Lymphatic: no unusual bruising or bleeding Psychiatric: normal mood and affect -Psychiatric: Short term memory deficit related to fall at home FMR H&P: Results - Labs Result Diagrams: 10/25/18 03:55 10/25/18 03:55 Lab results: WBC 16.5 thou/uL (4.8-10.8) H 10/25/18 03:55 Hgb 16.8 g/dL (12.0-16.0) H 10/25/18 03:55 Hct 50.7 % (36.0-47.0) H 10/25/18 03:55 MCV 99.2 fL (78.0-98.0) H 10/25/18 03:55 Plt Count 161 thou/uL (130-400) 10/25/18 03:55 Band Neuts % (Manual) 3 % (5-11) L 10/25/18 03:55 Sodium 136 mmol/L (136-145) 10/25/18 03:55 Potassium 2.8 mmol/L (3.5-5.1) L* 10/25/18 03:55 Chloride 91 mmol/L (98-107) L 10/25/18 03:55 Carbon Dioxide 27 mmol/L (23-31) 10/25/18 03:55 BUN 37 mg/dL (9.8-20.1) H 10/25/18 03:55 Creatinine 1.08 mg/dL (0.6-1.1) 10/25/18 03:55 Glucose 104 mg/dL (83-110) 10/25/18 03:55 Calcium 10.1 mg/dL (7.8-10.44) 10/25/18 03:55 Total Bilirubin 2.4 mg/dL (0.2-1.2) H 10/25/18 03:55 AST 20 U/L (5-34) 10/25/18 03:55 ALT 13 U/L (8-55) 10/25/18 03:55 Alkaline Phosphatase 117 U/L (40-150) 10/25/18 03:55 Creatine Kinase 20 U/L (29-168) L 10/25/18 03:55 CK-MB (CK-2) 1.7 ng/mL (0-6.6) 10/25/18 03:55 Serum Total Protein 7.0 g/dL (6.0-8.3) 10/25/18 03:55 Albumin 3.6 g/dL (3.4-4.8) 10/25/18 03:55 Urine Ketones Trace mg/dL (Negative) H 10/25/18 04:15 Urine Blood Negative (Negative) 10/25/18 04:15 Urine Nitrite Negative (Negative) 10/25/18 04:15 Ur Leukocyte Esterase Negative (Negative) 10/25/18 04:15 - Radiology Interpretation CT scan - head Status: report reviewed by me (No acute pathology) Chest x-ray Status: image reviewed by me, report reviewed by me (Concern for multifocal PNA and possible R mass) CT scan - abdomen Status: report reviewed by me (No acute process. R adrenal mass) FMR H&P: A/P - Problem List (1) CAP (community acquired pneumonia) Current Visit: Yes Status: Acute Code(s): J18.9 - PNEUMONIA, UNSPECIFIED ORGANISM (2) Gastroenteritis Current Visit: No Status: Acute Code(s): K52.9 - NONINFECTIVE GASTROENTERITIS AND COLITIS, UNSPECIFIED (3) Elevated troponin Current Visit: Yes Status: Acute Code(s): R74.8 - ABNORMAL LEVELS OF OTHER SERUM ENZYMES (4) Hypokalemia Current Visit: Yes Status: Acute Code(s): E87.6 - HYPOKALEMIA (5) Hypothyroid Current Visit: Yes Status: Chronic Code(s): E03.9 - HYPOTHYROIDISM, UNSPECIFIED (6) Chronic low back pain Current Visit: Yes Status: Chronic Code(s): M54.5 - LOW BACK PAIN; G89.29 - OTHER CHRONIC PAIN (7) CKD (chronic kidney disease) stage 3, GFR 30-59 ml/min Current Visit: Yes Status: Chronic Code(s): N18.3 - CHRONIC KIDNEY DISEASE, STAGE 3 (MODERATE) (8) Gout Current Visit: Yes Status: Chronic Code(s): M10.9 - GOUT, UNSPECIFIED (9) Wound of skin Current Visit: Yes Status: Chronic Code(s): T14.8XXA - OTHER INJURY OF UNSPECIFIED BODY REGION, INITIAL ENCOUNTER (10) Hypertension Current Visit: Yes Status: Chronic Code(s): I10 - ESSENTIAL (PRIMARY) HYPERTENSION (11) CHF (congestive heart failure) Current Visit: No Status: Chronic Code(s): I50.9 - HEART FAILURE, UNSPECIFIED (12) Hypovolemia associated with vomiting Current Visit: No Status: Acute Code(s): E86.1 - HYPOVOLEMIA (13) Pulmonary HTN Current Visit: No Status: Chronic Code(s): I27.20 - PULMONARY HYPERTENSION, UNSPECIFIED - Plan 1. CAP - start Rocephin and Flagyl. She has tolerated cephalosporins in the past without issue. There is concern for aspiration given hx of n/v and location of infiltrate. - Currently no need for supplemental O2 - CBC in am - Will need repeat CXR to evaluate for nodule vs infiltrate - ST consult for possible aspiration 2. Hypokalemia - replaced in ER, give 40 meq more when she gets to the floor. Mg WNL - Recheck in am - likely 2/2 GI losses 3. Gastroenteritis - source of hypovolemia and hypokalemia - Zofran PRN - IVF 4. Elevated trop - likely demand related. Low concern for ACS - repeat trop in 3 hours. Monitor on tele 5. CKD 3 - at baseline 6. CAD - home meds 7. HTN - home meds 8. Gout - home meds 9. Asthma - home meds 10. Hypothyroid - home meds 11. Wound on epigastric area - Case management consult PPx lovenox Diet heart healthy Code DNAR Dispo: patient is currently stable. Expect improvement of symptoms over the next 48 hours. FMR H&P: Upper Level - Plan Date/Time: 10/25/18 1017 I, [], have evaluated this patient and agree with findings/plan as outlined by civil engineering intern resident. Pertinent changes/additions are listed here. Attending Addendum - Attending Addendum Date/Time: 10/25/18 1624 I personally evaluated the patient and discussed the management with Dr. Worley I agree with the History, Examination, Assessment and Plan documented above with any addition or exceptions noted below. 88 yo female with history of asthma presents for evaluation of fall and cough/N/ V/diarrhea. Patient reports a several day history of cough, N/V and frequent diarrhea. Denies bloody stools. Denies sick contacts. Denies chills and fever but reports fatigue. VS reviewed. Imaging reviewed. Labs reviewed. Gastroenteritis: Treat symptomatically. Add lactic acid and trend if abnormal. Add stool studies due to persistence. Multilobar pneumonia: Per CXR. Patient with vague symptoms for pneumonia. No significant event for acute aspiration by history. Add procal. Antibiotics have been provided for the next 24 hours. Righ middle lobe mass: Will need repeat CXR and then CT scan if remains present. Replace Elda Valdes
[2018-10-25 12:44] LABS: Troponin I 0.069 ng/mL (< 0.028)
[2018-10-25] MEDS ORDERED: Ondansetron ODT 4 MG TAB PO PRN (18:13)
[2018-10-25] MEDS ORDERED: metroNIDAZOLE 500 MG in Premix Bag 1 BAG IVPB SCH (18:15)
[2018-10-25] MEDS ORDERED: Potassium Chloride 40 MEQ in Sodium Chloride 0.9% 500 ML IVPB SCH (18:30)
[2018-10-25] MEDS: Potassium Chloride 20 MEQ in Premix Bag 1 BAG IVPB SCH (18:50)
[2018-10-25] MEDS: Sodium Chloride 0.9% 1,000 ML IV SCH (20:22)
[2018-10-25] MEDS: cefTRIAXone\\ROCEPHIN 1 GM in Sodium Chloride 0.9% 100 ML IVPB SCH (20:23)
[2018-10-25] MEDS ORDERED: Famotidine 20 MG TAB PO SCH (21:00)
[2018-10-25 22:33] LABS: Legionella Urinary Ag Negative (Negative); Strep pneumo Urine Ag NEGATIVE (NEGATIVE)
[2018-10-26] MEDS: metroNIDAZOLE 500 MG in Premix Bag 1 BAG IVPB SCH ×3 (02:30→17:34)
[2018-10-26] MEDS ORDERED: Labetalol HCl 100 MG/20 ML VIAL SLOW IVP PRN (04:23)
[2018-10-26] MEDS: Sodium Chloride 0.9% 1,000 ML IV SCH ×3 (06:16→22:11)
[2018-10-26] MEDS ORDERED: Non-Formulary Item 1 EACH (Esomeprazole Magnesium [Nexium] 40 MG) PO PRN (06:25)
[2018-10-26] MEDS ORDERED: Docusate 100 MG CAP PO PRN (06:25)
[2018-10-26 06:38] LABS: Band 8 % (5-11); Hemoglobin 15.7 g/dL (12.0-16.0); Lymphocytes 13 % (21-51); MDiff Complete? YES; Mean Corpuscular HGB CONC 32.6 g/dL (32.0-36.0); Mean Corpuscular Hemoglobin 32.8 pg (27.0-31.0); Mean Platelet Volume 10.4 fL (7.4-10.4); Metamyelocyte 1 % (0-0); Monocytes 11 % (0-10); Neutrophil 67 % (42-75); PLT Morphology Comment Appears Adequate; Platelet Count 158 thou/uL (130-400); RBC Distribution Width 13.7 % (11.5-14.5); Red Blood Cell (RBC) Count 4.79 mill/uL (4.20-5.40); White Blood Cell (WBC) Count 14.6 thou/uL (4.8-10.8)
[2018-10-26 06:41] LABS: Anion Gap 17 mmol/L (10-20); BUN (Urea Nitrogen) 28 mg/dL (9.8-20.1); Calc. Creatinine Clearance 41 mL/min (70-130); Calcium 9.1 mg/dL (7.8-10.44); Carbon Dioxide 25 mmol/L (23-31); Chloride 100 mmol/L (98-107); Estimated GFR-MDRD 56; Glucose 109 mg/dL (83-110); Potassium 4.6 mmol/L (3.5-5.1); Sodium 137 mmol/L (136-145)
--- NOTE | 2018-10-26 07:58 | PDOC.FM ---
- Subjective Subjective: Patient seen at bedside this morning, resting comfortably. No complaints this morning. States that n/v/d has improved as well as her cough. No acute events over night. - Objective Vital Signs & Weight: Vital Signs (12 hours) Temp Pulse Resp BP BP Pulse Ox 10/26/18 06:18 80 193/80 H 10/26/18 03:53 97.7 F 80 18 193/80 H 92 L 10/26/18 00:00 97.5 F L 82 18 166/74 H 93 L 10/25/18 20:00 97.3 F L 80 18 127/57 L 92 L Weight Weight 61.689 kg I&O: 10/25/18 10/26/18 10/27/18 06:59 06:59 06:59 Intake Total 1200 Balance 1200 Result Diagrams: 10/26/18 06:04 10/26/18 06:04 <Maximo Worley - Last Filed: 10/26/18 07:54> - Objective Vital Signs & Weight: Vital Signs (12 hours) Temp Pulse Resp BP BP Pulse Ox 10/26/18 08:00 97.7 F 81 17 132/61 93 L 10/26/18 06:18 80 193/80 H 10/26/18 03:53 97.7 F 80 18 193/80 H 92 L 10/26/18 00:00 97.5 F L 82 18 166/74 H 93 L Weight Weight 61.689 kg I&O: 10/25/18 10/26/18 10/27/18 06:59 06:59 06:59 Intake Total 1200 Balance 1200 Result Diagrams: 10/26/18 06:04 10/26/18 06:04 <Bhaskar Vital - Last Filed: 10/26/18 09:48> Phys Exam - Physical Examination Constitutional: NAD HEENT: moist MMs Neck: no JVD Respiratory: clear to auscultation bilateral Cardiovascular: RRR, no significant murmur Gastrointestinal: non-tender, no distention Musculoskeletal: no edema Neurological: moves all 4 limbs Psychiatric: A&O x 3 Skin: no rash <Maximo Worley - Last Filed: 10/26/18 07:54> Dx/Plan (1) CAP (community acquired pneumonia) Code(s): J18.9 - PNEUMONIA, UNSPECIFIED ORGANISM Status: Acute (2) Gastroenteritis Code(s): K52.9 - NONINFECTIVE GASTROENTERITIS AND COLITIS, UNSPECIFIED Status : Acute (3) Elevated troponin Code(s): R74.8 - ABNORMAL LEVELS OF OTHER SERUM ENZYMES Status: Acute (4) Hypokalemia Code(s): E87.6 - HYPOKALEMIA Status: Acute (5) Hypothyroid Code(s): E03.9 - HYPOTHYROIDISM, UNSPECIFIED Status: Chronic (6) Chronic low back pain Code(s): M54.5 - LOW BACK PAIN; G89.29 - OTHER CHRONIC PAIN Status: Chronic (7) CKD (chronic kidney disease) stage 3, GFR 30-59 ml/min Code(s): N18.3 - CHRONIC KIDNEY DISEASE, STAGE 3 (MODERATE) Status: Chronic (8) Gout Code(s): M10.9 - GOUT, UNSPECIFIED Status: Chronic (9) Wound of skin Code(s): T14.8XXA - OTHER INJURY OF UNSPECIFIED BODY REGION, INITIAL ENCOUNTER Status: Chronic (10) Hypertension Code(s): I10 - ESSENTIAL (PRIMARY) HYPERTENSION Status: Chronic (11) CHF (congestive heart failure) Code(s): I50.9 - HEART FAILURE, UNSPECIFIED Status: Chronic (12) Hypovolemia associated with vomiting Code(s): E86.1 - HYPOVOLEMIA Status: Acute (13) Pulmonary HTN Code(s): I27.20 - PULMONARY HYPERTENSION, UNSPECIFIED Status: Chronic - Plan Plan: 1. CAP - continue Rocephin and Flagyl for possible aspiration PNA. - Currently no need for supplemental O2 - WBC is improving - Will need repeat CXR to evaluate for nodule vs infiltrate - ST consult pending 2. Hypokalemia - resolved 3. Gastroenteritis - improving. Advance diet as tolerated - Zofran PRN - IVF at one half maintenance 4. Elevated trop - down trending, likely related to demand from low volume status 5. CKD 3 - at baseline 6. CAD - home meds 7. HTN - home meds 8. Gout - home meds 9. Asthma - home meds 10. Hypothyroid - home meds 11. Wound on epigastric area - Case management consult Dispo: Patient is clinically improving, likely ready to dc tomorrow <Maximo Worley - Last Filed: 10/26/18 07:54> Attending Addendum - Attending Addendum Date/Time: 10/26/18 0946 I personally evaluated the patient and discussed the management with Dr. Worley. I agree with the History, Examination, Assessment and Plan documented above with any addition or exceptions noted below. Patient reports feeling somewhat better today. She is admitted for what appears to be multifocal PNA on CXR, but her labs and PCT do not necessarily support the diagnosis of a severe bacterial PNA. She will continue on antibiotics for now. She appears volume depleted and will continue on IV fluids for now as well as therapy services. Awaiting culture results. May need serial CXR in outpatient setting to monitor her lung findings to see if they arise more from a mass and not in infectious process. <Bhaskar Vital - Last Filed: 10/26/18 09:48>
[2018-10-26] MEDS: Calcitriol 0.25 MCG CAP PO SCH (08:55)
[2018-10-26] MEDS: Allopurinol 100 MG TAB PO SCH (08:55)
[2018-10-26] MEDS: Cyanocobalamin (Vitamin B-12) 1,000 MCG TAB PO SCH (08:56)
[2018-10-26] MEDS: Potassium Chloride 10 MEQ TAB PO SCH (08:56)
[2018-10-26] MEDS: Furosemide 40 MG TAB PO SCH (08:56)
[2018-10-26] MEDS: Spironolactone 25 MG TAB PO SCH (08:56)
[2018-10-26] MEDS: Aspirin 81 mg Enteric Coated Tablet PO SCH (08:56)
[2018-10-26] MEDS: Enoxaparin Sodium 30 MG/0.3 ML SYRINGE SC SCH (08:57)
[2018-10-26] MEDS ORDERED: CYANOCOBALAMIN 500 MCG PO SCH (09:00)
[2018-10-26] MEDS ORDERED: Non-Formulary Item 1 EACH (Fluticasone/Vilanterol [Breo Ellipta] 1 INH) IH SCH (09:00)
[2018-10-26] MEDS ORDERED: ACETAMINOPHEN PO SCH (09:00)
[2018-10-26] MEDS ORDERED: Non-Formulary Item 1 EACH (Budesonide-Formoterol [Symbicort 160-4.5] 1 PUFF) INH SCH (09:00)
[2018-10-26] MEDS ORDERED: BREO ELLIPTA INH SCH (09:00)
[2018-10-26] MEDS ORDERED: TRAMADOL PO SCH (09:00)
[2018-10-26] MEDS ORDERED: Non-Formulary Item 1 EACH (Levothyroxine Sodium [Tirosint] 50 MCG) PO SCH (09:00)
--- NOTE | 2018-10-26 14:04 | EKG ---
Test Reason : FALL Blood Pressure : / mmHG Vent. Rate : 080 BPM Atrial Rate : 079 BPM P-R Int : 000 ms QRS Dur : 162 ms QT Int : 476 ms P-R-T Axes : 000 -83 099 degrees QTc Int : 548 ms Ventricular-paced rhythm Abnormal ECG Confirmed by ALLIE OCHOA DO ([id number]), assignment desk editor YENNY MOLINA ([id number]) on 10/26/2018 2:04:22 PM Referred By: Confirmed By:ALLIE OCHOA DO
[2018-10-26] MEDS: Acetaminophen 325 MG TAB PO PRN (17:34)
[2018-10-26] MEDS ORDERED: Mometasone/Formoterol 120 PUFF INHALER INH SCH (18:30)
[2018-10-26] MEDS: Mometasone/Formoterol 120 PUFF INHALER INH SCH (18:46)
[2018-10-26] MEDS ORDERED: Furosemide 40 MG TAB PO SCH (21:00)
[2018-10-26] MEDS ORDERED: Pravastatin Sodium 40 MG TAB PO SCH (21:00)
[2018-10-26] MEDS: Furosemide 80 MG TAB PO SCH (22:10)
[2018-10-26] MEDS: Montelukast Sodium 10 mg Tablet PO SCH (22:10)
[2018-10-26] MEDS: Atorvastatin Calcium 10 MG TAB PO SCH (22:10)
[2018-10-26] MEDS: cefTRIAXone\\ROCEPHIN 1 GM in Sodium Chloride 0.9% 100 ML IVPB SCH (22:10)
[2018-10-27] MEDS: metroNIDAZOLE 500 MG in Premix Bag 1 BAG IVPB SCH ×3 (01:03→18:38)
[2018-10-27] MEDS: Levothyroxine Sodium 50 MCG TAB PO SCH (05:45)
[2018-10-27] MEDS: Mometasone/Formoterol 120 PUFF INHALER INH SCH ×2 (07:10→18:13)
--- NOTE | 2018-10-27 07:48 | PDOC.FM ---
- Subjective Subjective: Patient seen at bedside resting comfortably this morning. She complains of improving, but continued diarrhea and cough. Denies fever, chills, or SOB. No new complaints. - Objective MAR Reviewed: Yes Vital Signs & Weight: Vital Signs (12 hours) Temp Pulse Resp BP Pulse Ox 10/27/18 07:10 80 20 92 L 10/27/18 04:00 97.5 F L 78 16 168/76 H 94 L Weight Admit Weight 64.954 kg Weight 60.101 kg I&O: 10/26/18 10/27/18 10/28/18 06:59 06:59 06:59 Intake Total 1200 550 Balance 1200 550 Result Diagrams: 10/27/18 07:35 10/27/18 07:35 Phys Exam - Physical Examination Constitutional: NAD HEENT: moist MMs Neck: no JVD Respiratory: clear to auscultation bilateral Cardiovascular: RRR, no significant murmur Gastrointestinal: non-tender, no distention, positive bowel sounds Musculoskeletal: no edema Neurological: moves all 4 limbs Psychiatric: A&O x 3 Skin: no rash, normal turgor Dx/Plan (1) CAP (community acquired pneumonia) Code(s): J18.9 - PNEUMONIA, UNSPECIFIED ORGANISM Status: Acute (2) Gastroenteritis Code(s): K52.9 - NONINFECTIVE GASTROENTERITIS AND COLITIS, UNSPECIFIED Status : Acute (3) Elevated troponin Code(s): R74.8 - ABNORMAL LEVELS OF OTHER SERUM ENZYMES Status: Acute (4) Hypokalemia Code(s): E87.6 - HYPOKALEMIA Status: Acute (5) Hypothyroid Code(s): E03.9 - HYPOTHYROIDISM, UNSPECIFIED Status: Chronic (6) Chronic low back pain Code(s): M54.5 - LOW BACK PAIN; G89.29 - OTHER CHRONIC PAIN Status: Chronic (7) CKD (chronic kidney disease) stage 3, GFR 30-59 ml/min Code(s): N18.3 - CHRONIC KIDNEY DISEASE, STAGE 3 (MODERATE) Status: Chronic (8) Gout Code(s): M10.9 - GOUT, UNSPECIFIED Status: Chronic (9) Wound of skin Code(s): T14.8XXA - OTHER INJURY OF UNSPECIFIED BODY REGION, INITIAL ENCOUNTER Status: Chronic (10) Hypertension Code(s): I10 - ESSENTIAL (PRIMARY) HYPERTENSION Status: Chronic (11) CHF (congestive heart failure) Code(s): I50.9 - HEART FAILURE, UNSPECIFIED Status: Chronic (12) Hypovolemia associated with vomiting Code(s): E86.1 - HYPOVOLEMIA Status: Acute (13) Pulmonary HTN Code(s): I27.20 - PULMONARY HYPERTENSION, UNSPECIFIED Status: Chronic - Plan Plan: 1. CAP - continue Rocephin and Flagyl for possible aspiration PNA. - Currently no need for supplemental O2 - Follow CBC and Procal today - Will need repeat CXR to evaluate for nodule vs infiltrate, can be done outpatient - ST eval concerning for possible silent aspiration, though no recommendation for further eval unless there is worsening symptoms - PT eval pending, may consider dc to rehab 2. Hypokalemia - resolved 3. Gastroenteritis - improving. Advance diet as tolerated - Zofran PRN 4. Elevated trop - down trending, likely related to demand from low volume status 5. CKD 3 - at baseline 6. CAD - home meds 7. HTN - home meds, many of her pressures have been elevated. Would recommend outpatient titration of meds 8. Gout - home meds 9. Asthma - home meds 10. Hypothyroid - home meds 11. Wound on epigastric area - Case management consult Dispo: Patient is clinically improving, however does not feel strong enough to go home. PT eval is pending, she may be appropriate for short rehab stay Addendum - Attending - Attending Attestation Date/Time: 10/27/18 9880 I personally evaluated the patient and discussed the management with Dr. Worley. I agree with the History, Examination, Assessment and Plan documented above with any addition or exceptions noted below. Patient feeling improved. Continues on treatment for suspected PNA that may have aspiration component. She reports feeling better. Afebrile, WBC pending, and not requiring supplemental O2. Anticipate eventual discharge back to her independent living facility. Continue abx and therapy.
[2018-10-27 08:06] LABS: ALT (SGPT) 13 U/L (8-55); AST (SGOT) 23 U/L (5-34); Albumin 3.3 g/dL (3.4-4.8); Alkaline Phosphatase 102 U/L (40-150); Anion Gap 18 mmol/L (10-20); BUN (Urea Nitrogen) 22 mg/dL (9.8-20.1); Bilirubin, Total 1.4 mg/dL (0.2-1.2); Calc. Creatinine Clearance 44 mL/min (70-130); Calcium 8.5 mg/dL (7.8-10.44); Carbon Dioxide 28 mmol/L (23-31); Chloride 98 mmol/L (98-107); Estimated GFR-MDRD 62; Globulin 2.9 g/dL (2.4-3.5); Glucose 96 mg/dL (83-110); Potassium 3.5 mmol/L (3.5-5.1); Protein, Total 6.2 g/dL (6.0-8.3); Sodium 140 mmol/L (136-145)
--- NOTE | 2018-10-27 08:11 | PQF ---
CLINICAL DOCUMENTATION IMPROVEMENT CLARIFICATION FORM: ICD-10 Updated PLEASE DO AN ADDENDUM TO THE PROGRESS NOTE WITH ANY DOCUMENTATION UPDATES OR ADDITIONS AND CARRY THROUGH TO DC SUMMARY. THANK YOU. DATE: 10/26/18 ATTN: DR. CUEVAS Please exercise your independent, professional judgment in responding to the clarification form. Clinical indicators are provided on the bottom of this form for your review Please check appropriate box(s): HEART FAILURE: TYPE: [ ] Systolic / HFrEF [ ] Diastolic / HFpEF [ ] Combined Systolic / Diastolic [ ] Other diagnosis [ x ] Unable to determine In addition, please specify: Present on Admission (POA): [ x ] Yes [ ] No [ ] Unable to determine For continuity of documentation, please document condition throughout progress notes and discharge summary. Thank You. CLINICAL INDICATORS - SIGNS / SYMPTOMS / LABS PROGRESS NOTE 10/26/: "CHF, CHRONIC" RISKS: H/O CHF H/O PULMONARY HTN CKD STAGE 3 TREATMENT: CARDIAC MONITORING LASIX (STARTED 10/26) ALDACTONE (STARTED 10/26) (This form is maintained as a part of the permanent medical record) 2014 [email or web address]. All Rights Reserved LESLIE [email or web address] Office: [phone] [facility] SYSTEMYeny
[2018-10-27 08:27] LABS: Hemoglobin 15.8 g/dL (12.0-16.0); Mean Corpuscular HGB CONC 32.4 g/dL (32.0-36.0); Mean Corpuscular Hemoglobin 32.2 pg (27.0-31.0); Mean Corpuscular Volume 99.4 fL (78.0-98.0); Mean Platelet Volume 10.4 fL (7.4-10.4); Platelet Count 187 thou/uL (130-400); RBC Distribution Width 13.7 % (11.5-14.5); Red Blood Cell (RBC) Count 4.89 mill/uL (4.20-5.40); White Blood Cell (WBC) Count 11.6 thou/uL (4.8-10.8)
[2018-10-27] MEDS: Allopurinol 100 MG TAB PO SCH (09:32)
[2018-10-27] MEDS: Furosemide 40 MG TAB PO SCH (09:32)
[2018-10-27] MEDS: Potassium Chloride 10 MEQ TAB PO SCH (09:32)
[2018-10-27] MEDS: Aspirin 81 mg Enteric Coated Tablet PO SCH (09:33)
[2018-10-27] MEDS: Cyanocobalamin (Vitamin B-12) 1,000 MCG TAB PO SCH (09:33)
[2018-10-27] MEDS: Calcitriol 0.25 MCG CAP PO SCH (09:33)
[2018-10-27] MEDS: Acetaminophen 325 MG TAB PO PRN (09:33)
[2018-10-27] MEDS: Spironolactone 25 MG TAB PO SCH (09:33)
[2018-10-27 09:34] LABS: Band 6 % (5-11); Lymphocytes 9 % (21-51); MDiff Complete? YES; Monocytes 10 % (0-10); Neutrophil 66 % (42-75); RBC Morphology Normal; Reactive Lymphocytes 9 % (0-10)
[2018-10-27] MEDS: Enoxaparin Sodium 30 MG/0.3 ML SYRINGE SC SCH (09:34)
[2018-10-27] MEDS: cefTRIAXone\\ROCEPHIN 1 GM in Sodium Chloride 0.9% 100 ML IVPB SCH (21:43)
[2018-10-27] MEDS: Montelukast Sodium 10 mg Tablet PO SCH (21:44)
[2018-10-27] MEDS: Furosemide 80 MG TAB PO SCH (21:44)
[2018-10-27] MEDS: Atorvastatin Calcium 10 MG TAB PO SCH (21:44)
[2018-10-28] MEDS: metroNIDAZOLE 500 MG in Premix Bag 1 BAG IVPB SCH ×2 (01:28→10:16)
[2018-10-28] MEDS: Levothyroxine Sodium 50 MCG TAB PO SCH (05:49)
--- NOTE | 2018-10-28 06:12 | PDOC.FM ---
- Subjective Subjective: Pleasant 88 yo female seen at bedside this AM. Patient states that she has had multiple loose stools this morning. Patient states she feels better overall and more stable on her feet. She denies abdominal pain, n/v, fevers, or chills. She states her diarrhea has been chronic, but it definitely got worse prior to admission to the hospital. No other complaints. - Objective Vital Signs & Weight: Vital Signs (12 hours) Temp Pulse Resp BP Pulse Ox 10/28/18 04:00 99.2 F 82 18 156/77 H 98 10/27/18 19:15 97.4 F L 80 18 133/64 100 10/27/18 18:13 79 20 92 L Weight Admit Weight 64.954 kg Weight 59.375 kg I&O: 10/26/18 10/27/18 10/28/18 06:59 06:59 06:59 Intake Total 5988 579 9772 Output Total 1544 Balance 1200 550 -437 Result Diagrams: 10/27/18 07:35 10/27/18 07:35 Phys Exam - Physical Examination Constitutional: NAD HEENT: moist MMs Neck: full ROM Respiratory: no wheezing, clear to auscultation bilateral Cardiovascular: RRR, no significant murmur Gastrointestinal: soft, non-tender, no distention, positive bowel sounds Musculoskeletal: no edema, pulses present Neurological: non-focal, moves all 4 limbs Psychiatric: normal affect Skin: normal turgor, cap refill <2 seconds Dx/Plan (1) C. difficile colitis Status: Acute (2) CAP (community acquired pneumonia) Code(s): J18.9 - PNEUMONIA, UNSPECIFIED ORGANISM Status: Acute (3) Elevated troponin Code(s): R74.8 - ABNORMAL LEVELS OF OTHER SERUM ENZYMES Status: Acute (4) CKD (chronic kidney disease) stage 3, GFR 30-59 ml/min Code(s): N18.3 - CHRONIC KIDNEY DISEASE, STAGE 3 (MODERATE) Status: Chronic (5) Chronic low back pain Code(s): M54.5 - LOW BACK PAIN; G89.29 - OTHER CHRONIC PAIN Status: Chronic (6) Hypokalemia Code(s): E87.6 - HYPOKALEMIA Status: Acute (7) Hypertension Code(s): I10 - ESSENTIAL (PRIMARY) HYPERTENSION Status: Chronic (8) Gastroenteritis Code(s): K52.9 - NONINFECTIVE GASTROENTERITIS AND COLITIS, UNSPECIFIED Status : Acute (9) Gout Code(s): M10.9 - GOUT, UNSPECIFIED Status: Chronic (10) Hypothyroid Code(s): E03.9 - HYPOTHYROIDISM, UNSPECIFIED Status: Chronic - Plan Plan: CAP - continue Rocephin and Flagyl for possible aspiration PNA. - Currently on 2L NC and O2 saturation 98-100% - Will need repeat CXR to evaluate for nodule vs infiltrate, can be done outpatient - ST eval concerning for possible silent aspiration, though no recommendation for further eval unless there is worsening symptoms - PT eval pending, may consider dc to rehab Hypokalemia - resolved C diff colitis - improving. Advance diet as tolerated - Zofran PRN - C. diff toxin and antigen positive - Will treat and also initiate isolation precautions. Elevated trop - likely related to demand from low volume status - No further trending CKD 3 - at baseline CAD - home meds HTN - home meds, many of her pressures have been elevated. Would recommend outpatient titration of meds Gout - home meds Asthma - home meds Hypothyroid - home meds Wound on epigastric area - Case management consult Dispo: Patient is clinically improving. Will treat for C diff and prepare for rehab placement. Addendum - Attending - Attending Attestation Date/Time: 10/28/18 0510 I personally evaluated the patient and discussed the management with Dr. Patel. I agree with the History, Examination, Assessment and Plan documented above with any addition or exceptions noted below. Patient feels well this morning. She has been treated over the last few days for presumed pneumonia. She has been having diarrhea for years on and off, but she reports that it had gotten worse in the days PRIOR to hospitalization. Cdiff studies were ordered on admission, but not obtained until yesterday. She has now tested positive for Cdiff infection. Will start patient on oral Vanc today. She is fluid rehydrated and ambulating with more ease. Labs reassuring. Awaiting placement decision from rehab.
[2018-10-28] MEDS: Mometasone/Formoterol 120 PUFF INHALER INH SCH (06:32)
[2018-10-28] MEDS: Calcitriol 0.25 MCG CAP PO SCH (07:53)
[2018-10-28] MEDS: Allopurinol 100 MG TAB PO SCH (07:53)
[2018-10-28] MEDS: Aspirin 81 mg Enteric Coated Tablet PO SCH (07:53)
[2018-10-28] MEDS: Spironolactone 25 MG TAB PO SCH (07:53)
[2018-10-28] MEDS: Furosemide 40 MG TAB PO SCH (07:54)
[2018-10-28] MEDS: Cyanocobalamin (Vitamin B-12) 1,000 MCG TAB PO SCH (07:54)
[2018-10-28] MEDS: Enoxaparin Sodium 30 MG/0.3 ML SYRINGE SC SCH (07:54)
[2018-10-28] MEDS: Potassium Chloride 10 MEQ TAB PO SCH (08:00)
[2018-10-28] MEDS ORDERED: Saccharomyces boulardii 250 MG CAP PO SCH (09:00)
[2018-10-28] MEDS: Vancomycin HCl 25 MG/ML Oral PO SCH ×3 (10:13→16:55)
[2018-10-28 11:17] VITALS: BMI 23.9
[2018-10-28 16:06] VITALS: BP 148/72; TEMP 99.1
--- NOTE | 2018-10-29 09:55 | DIS ---
DATE OF ADMISSION: 10/25/2018 DATE OF DISCHARGE: 10/28/2018 RESIDENT: Preet Patel M.D. ADMITTING ATTENDING: Lisa Moore MD. DISCHARGE ATTENDING: Bhaskar Vital MD CONSULTATIONS: OT, PT, Speech Therapy, Rehab Screen, and Wound Care. PROCEDURES: 1. On 10/25/2018, the patient underwent a chest x-ray that showed multiple nodular opacities throughout both lungs, may reflect multifocal pneumonia. Followup radiography of the chest is recommended after treatment as the right mid-lung nodular density is somewhat mass like. 2. On 10/25/2018, the patient underwent a brain CT that showed no acute intracranial bleed or mass effect. 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 3. On 10/25/2018, the patient underwent lumbar spine x-ray that showed no definite acute fracture of the lumbar spine. Advanced degenerative changes. 4. On 10/25/2018, the patient underwent a cervical spine CT that showed no definite acute fracture or post traumatic subluxation by CT. 5. On 10/25/2018, the patient underwent abdomen and pelvis CT that showed no acute abnormal findings. Right lower lobe pneumonia. PRIMARY DIAGNOSES: 1. Community-acquired pneumonia. 2. Clostridium difficile colitis. 3. Chronic kidney disease, stage 3. 4. Hypokalemia. 5. Elevated troponin. 6. Chronic low back pain. 7. Hypertension. 8. Gout. 9. Hypothyroidism. DISCHARGE MEDICATIONS: 1. Spironolactone 25 mg p.o. daily. 2. Nitroglycerin 0.4 mg sublingual as directed p.r.n. 3. Levothyroxine sodium 50 mcg p.o. q.a.m. 4. Aspirin 81 mg p.o. daily. 5. Pravastatin 40 mg p.o. at bedtime. 6. Allopurinol 100 mg p.o. daily. 7. Vitamin B12, 500 mcg p.o. daily. 8. Albuterol sulfate nebulizers 2.5 mg nebulized q.8 hour p.r.n. 9. Nexium 40 mg p.o. daily p.r.n. 10. Montelukast 10 mg p.o. at bedtime. 11. Furosemide 80 mg p.o. q.p.m. 12. Furosemide 40 mg p.o. q.a.m. 13. Calcitriol 0.25 mcg p.o. daily. 14. Tramadol/acetaminophen 37.5/325 one tablet p.o. daily. 15. Docusate 1 capsule p.o. b.i.d. p.r.n. 16. Albuterol sulfate 1.25 mg inhaled q.i.d. p.r.n. 17. Ondansetron 4 mg p.o. q.4 hours. 18. Breo Ellipta 100 mcg/25 mcg one inhalation inhaled daily. 19. Symbicort 160/4.5 mg one puff inhaled b.i.d. 20. Reglan 10 mg p.o. t.i.d. 21. Gabapentin 100 mg p.o. t.i.d. 22. Potassium chloride 10 mEq p.o. daily. 23. Azithromycin 250 mg p.o. as directed. 24. Florastor 250 mg p.o. daily. 25. Vancomycin 125 mg p.o. q.i.d. for 10 days. DISCONTINUED MEDICATIONS: None. HISTORY OF PRESENT ILLNESS AND HOSPITAL COURSE: The patient is an 88-year-old female with initial complaint of fall at home around 1 on 10/25/2018. The patient states that she does not the remember the event. Prior to this morning, she complains of 3 to 4 days of nausea, vomiting, and diarrhea with associated nonproductive cough. She denies any fevers or chills. She endorses right-sided chest pain symptoms. The patient was found to have findings on a chest x-ray concerning for multifocal pneumonia and a potassium of 2.8. The patient was started on empiric antibiotics and admitted to the hospital. During this hospitalization, the patient continued to improve; however continued to have loose stools. The patient on 10/27/2018 had stool sample collected and it was sent off and came back positive for C difficile stool antigen and toxin. The patient was initiated on vancomycin 125 mg p.o. q.i.d. with isolation precautions. The patient had some abnormal lab values of white blood cell count of 16.5 on the date of admission, that trended down to 11.6 day before discharge and had a troponin I that was 0.086 and trended down to 0.069. The patient also had a urine legionella antigen that was negative and a urine strep pneumoniae antigen that was negative as well. The patient had negative influenza testing, negative campylobacter and Shiga toxin testing. The patient otherwise remained afebrile during this hospitalization and had normotensive to hypertensive blood pressures and required oxygen only minimally on the last day of discharge. However, her oxygen saturations continued to remain always above 90% on room air. The patient was evaluated by Speech Therapy , Occupational Therapy, Physical Therapy, and Rehab with acceptance into the [facility] for further recovery from this illness. The patient was seen by Speech Pathologist that showed a mild functional impairment with swallowing and no other deficits. The patient was given safe swallowing strategies and with no real other means of followup after discharge. The patient otherwise tolerated the hospitalization well and will be discharged to a rehab facility for further recovery. DISPOSITION: Stable. DISCHARGE INSTRUCTIONS: 1. Location: She will be discharged to the [facility]. 2. Diet: Will be heart-healthy diet as tolerated. 3. Activity: Will be as tolerated with cardiopulmonary limitations. 4. Followup: Follow up with the [facility] physician as well as Dr. Konstantin Salas in the next 1 to 2 weeks to further discuss management of her chronic comorbidities. We wish this patient best of luck and hope she has no further complications of her disease process. Job ID: [id number] [facility]
== END 2018-10-28 18:00 | DRG 371 ==
LOC: ERS 02:48 → ERHOLD 08:29 → 2NO 17:24
PROVIDERS: ADMIT Student in an Organized Health Care Education/Training Program; ATTEND Student in an Organized Health Care Education/Training Program
DX: A04.72 Enterocolitis due to Clostridium difficile, not specified as recurrent (principal); J18.9 Pneumonia, unspecified organism; I13.0 Hypertensive heart and chronic kidney disease with heart failure and stage 1 through stage 4 chronic kidney disease, or unspecified chronic kidney disease; E87.6 Hypokalemia; N18.3 Chronic kidney disease, stage 3 (moderate); M54.5 Low back pain; M10.9 Gout, unspecified; E03.9 Hypothyroidism, unspecified; Z79.82 Long term (current) use of aspirin; Z79.51 Long term (current) use of inhaled steroids; Z79.899 Other long term (current) drug therapy; I50.9 Heart failure, unspecified; Z95.5 Presence of coronary angioplasty implant and graft; Z95.0 Presence of cardiac pacemaker; T14.8XXA Other injury of unspecified body region, initial encounter; W18.30XA Fall on same level, unspecified, initial encounter
CPT/HCPCS: 36415; 70450; 71045; 72100; 72125; 74176; 80048; 80053; 81003; 82550; 82553; 83735; 84145; 84484; 85025; 87045; 87046; 87324; 87449; 87493; 87804; 87899; 93005; G8978-GP-CM; G8979-GP-CK; G8987-GO-CJ; G8988-GO-CI; G8996-GN-CJ; G8997-GN-CJ; J0696; J1650; J2185; J2405; J3480; J7050; Q0162